=== PATIENT | female | born 1970 | race African-American/Black ===

== ENCOUNTER 2018-04-26 15:05 | Inpatient (IN) | payer MEDICAID ==
[2018-04-26] MEDS ORDERED: Heparin for STEMI(*) 5,000 UNITS/ML 1 ML VIAL IV ONE (15:09)
[2018-04-26] MEDS ORDERED: Ticagrelor* 90 MG TAB PO ONE (15:09)
[2018-04-26] MEDS ORDERED: Nitroglycerin TAB 0.4 MG* 0.4 MG TAB SL ONE (15:16)
[2018-04-26] MEDS ORDERED: nitroGLYCERIN DRIP* 25,000 MCG/250 ML BTL ONE ×2 (15:18→16:04)
[2018-04-26] MEDS ORDERED: VERAPAMIL 2.5 MG/ML 2 ML VIAL ** 5 mg/2 ml ONE (15:18)
[2018-04-26] MEDS ORDERED: Lidocaine 1% INJ* 10 MG/ML 30 ML SDV ONE (15:18)
[2018-04-26] MEDS ORDERED: Heparin 2 UNITS/ML IVPREMIX* 2,000 ML IV ONE (15:18)
[2018-04-26] MEDS ORDERED: Heparin(*) 1000 UNIT/ML 10 ML VIAL CATH LAB IV ONE (15:18)
--- NOTE | 2018-04-26 15:21 | ED ---
HPI Chest Pain - HPI Summary HPI Summary: STEMI called at 1446. Pt is a 48 year old female presenting from [facility] for a STEMI. Pt is s/p left mastectomy. Her chest pain started about 5 minutes before she went to the hospital. She was driving, and she started sweating, felt pressure in her chest, so she pulled over and it would not go away. The chest pain comes and goes, when it comes it is severe. NKDA. The pt had a cardiac catheter in June. The pt reports SOB when the CP comes, as well as some nausea. - History of Current Complaint Hx Obtained From: Patient Onset/Duration: Started Hours Ago, Still Present Timing: Intermittent Initial Severity: Moderate Current Severity: Mild Chest Pain Location: Left Anterior Aggravating Factor(s): Nothing Alleviating Factor(s): Nothing Associated Signs and Symptoms: Positive: Chest Pain, Shortness of Breath, Diaphoresis, Nausea - Allergy/Home Medications Allergies/Adverse Reactions: Allergies Allergy/AdvReac Type Severity Reaction Status Date / Time shellfish derived Allergy Unknown Verified 04/26/18 15:38 Reaction Details PMH/Surg Hx/FS Hx/Imm Hx Previously Healthy: No Cardiovascular History: Reports: Hx Hypertension Respiratory History: Denies: Hx Chronic Obstructive Pulmonary Disease (COPD) Infectious Disease History: Denies: Traveled Outside the [place] in Last 30 Days - Family History Known Family History: Negative: Renal Disease - Social History Lives: With Family Alcohol Use: None Substance Use Type: Reports: None Hx Tobacco Use: No Smoking Status (MU): Never Smoked Tobacco Review of Systems Positive: Skin Diaphoresis Positive: Chest Pain Positive: Shortness Of Breath Positive: Nausea All Other Systems Reviewed And Are Negative: Yes Physical Exam - Summary Physical Exam Summary: General: well-appearing, no pain distress Skin: warm, color reflects adequate perfusion, dry Head: normal Eyes: EOMI, JOANNA ENT: normal Neck: supple, nontender Respiratory: CTA, breath sounds present Cardiovascular: RRR Abdomen: soft, nontender Bowel: present Musculoskeletal: normal, strength/ROM intact Neurological: sensory/motor intact, A&O x3 Psychological: affect/mood appropriate GCS: 15 NIH: 0 Triage Information Reviewed: Yes Vital Signs Reviewed: Yes Diagnostics - Laboratory Result Diagrams: 04/26/18 17:45 Lab Statement: Any lab studies that have been ordered have been reviewed, and results considered in the medical decision making process. - EKG 1509 Cardiac Rate: NL - 81bpm EKG Rhythm: Sinus Rhythm ST Segment: Normal Ectopy: None Chest Pain Course/Dx - Course Course Of Treatment: DR ALFONSO, INTERVENTIONAL CARDIOLOGY, SAW THE PATIENT IN THE ED AND TOOK HER TO THE SNUFF DRIER. CRITICAL CARE TIME LESS THAN 30 MINUTES. - Diagnoses Provider Diagnoses: STEMI (ST elevation myocardial infarction) Discharge - Sign-Out/Discharge Documenting (check all that apply): Patient Departure - admitted - Discharge Plan Condition: Stable Disposition: ADMITTED TO [facility] - Billing Disposition and Condition Condition: STABLE Disposition: Admitted to [facility] - Attestation Statements Document Initiated by Scribe: Yes Documenting Scribe: Courtney Carpenter Provider For Whom Sergeibe is Documenting (Include Credential): Robel Aguiar MD. Scribe Attestation: ICourtney, scribed for Robel Aguiar MD. on 04/26/18 at 1943. Scribe Documentation Reviewed: Yes Provider Attestation: The documentation as recorded by the scribeCourtney accurately reflects the service I personally performed and the decisions made by me, Robel Aguiar MD. Consult Consult: 1447 - Spoke with Jon Aflonso MD, to update him on the STEMI that was called. NIH Scale - NIH Scale Level of Consciousness: Alert/Keenly Responsive Ask Patient the Month and His/Her Age: Both Correct Ask Pt to Open/Close Eyes and Dining Manager/Release Non-Paretic Hand: Both Correctly Best Gaze (Only Horizontal Eye Movement): Normal Visual Field Testing: No Visual Loss Facial Paresis-Pt to Smile & Close Eyes or Grimace Symmetry: Normal/Symmetrical Motor Function - Right Arm: No Drift-Holds 10 Seconds Motor Function - Left Arm: No Drift-Holds 10 Seconds Motor Function - Right Leg: No Drift-Holds 10 Seconds Motor Function - Left Leg: No Drift-Holds 10 Seconds Limb Ataxia-Must be out of Proportion to Weakness Present: Absent Sensory (Use Pinprick to Test Arms/Legs/Trunk/Face): Normal Best Language (Describe Picture, Name Items): No Aphasia Dysarthria (Read Several Words): Normal Extinction and Inattention: No Abnormality Total Score: 0
[2018-04-26] MEDS ORDERED: NS 0.9% 1000 ML* 1,000 ML IV SCH (15:30)
[2018-04-26] MEDS ORDERED: Midazolam* 1 MG/ML 10 ML VIAL (10 MG) ONE (15:37)
[2018-04-26] MEDS ORDERED: fentaNYL* 50 MCG/ML 2 ML VIAL (100 MCG VIAL) ONE (15:37)
[2018-04-26] MEDS ORDERED: KCL 10 MEQ/50 ML IVPREMIX* 10 MEQ/50 ML BAG ONE (15:40)
[2018-04-26] MEDS ORDERED: Iohexol 350 (CONTRAST) 200 ML MDV IV ONE (15:41)
[2018-04-26] MEDS ORDERED: NitroPRUSSide* 25 MG/ML 2 ML VIAL IVPB ONE (16:48)
[2018-04-26] MEDS ORDERED: NS 0.9% 1000 ML* 400 ML IV ONE (17:10)
[2018-04-26] MEDS ORDERED: Nitroglycerin TAB 0.4 MG* 0.4 MG TAB SL PRN (17:10)
[2018-04-26] MEDS ORDERED: Captopril TAB* 12.5 MG PO SCH (18:00)
[2018-04-26] MEDS ORDERED: amLODIPine TAB* 5 MG PO ONE (18:05)
[2018-04-26] MEDS: Atorvastatin* 80 MG TAB PO SCH (18:08)
[2018-04-26] MEDS: Metoprolol Tartrate TAB* 25 MG PO SCH (18:08)
--- NOTE | 2018-04-26 20:56 | CATH ---
CC: Dr. Morgan; Dr. Ott; Krissy Alfonso MD * CARDIAC CATH REPORT: DATE OF ADMISSION: 04/26/18 - ROOM #ICU-09 PRIMARY CARE PHYSICIAN: Dr. Morgan in [place], [place]. BLACK TOP ROLLER: Dr. Ott in [place], [place]. Both part of [facility]. HISTORY: A 48-year-old woman presenting to the ER at [facility] with anterolateral ST-elevation infarct, transferred here for further care. She is a good historian, she underwent catheterization at [facility] last June, per her history because of hypertension. She was told she did not have an infarct. Access was radial, was uncomplicated. She has a longstanding history of hypertension, has per history been controlled on lisinopril and possibly HydroDIURIL. Today at around 11:30 this morning she developed severe chest pain. She presented at [facility] where initial EKG showed hyperacute anterolateral ST changes, repeat EKG showed ST elevation in the anterolateral leads, she was then transferred here. 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 EKG in the ER at 1509 had improved dramatically with resolution of the anterolateral injury current, and with left anterior hemiblock. She underwent emergent catheterization. PAST MEDICAL HISTORY: Hypertension, prior left mastectomy without radiation therapy, obesity. MEDICATIONS: Prehospital medications: 1. Lisinopril unknown mg. 2. Aspirin 81 mg daily. 3. Possibly HydroDIURIL daily. ALLERGIES: None to medication. FAMILY HISTORY: Positive for premature coronary artery disease in her father. SOCIAL HISTORY: She is a nonsmoker, she is . 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 REVIEW OF SYSTEMS: General: No weight loss and no fevers. CHAR FILTER OPERATOR: No history of TIA or CVA. GI: No history of peptic ulcer disease or bleeding. Heme: Positive for prior left mastectomy without subsequent radiation or chemo. Circulatory: No claudication. Endocrine: No history of diabetes. Remainder all negative. PHYSICAL EXAMINATION: Vital Signs: First blood pressure in the ER was 216/ 122. She was pain free. Heart rate in the 80s, sinus rhythm, with occasional PVC. She was not in distress. Her lungs were clear to percussion and auscultation. JVP normal without elevation. Carotids palpable without bruits. No thyromegaly. HEENT: Normal without xanthelasma, scleral injection, or jaundice. EOMs normal. Cranial nerves intact. Cardiac: Normal S1 and S2, audible S4 gallop, no murmur or S3. No rub. [place] not palpable. Abdomen: Soft and nontender. No bruits, aorta not palpable. Liver not palpable. No masses. Femoral pulses 2+. Extremities: Radial pulses 2+, pedal pulses 2+. No cyanosis, clubbing, or edema. Skin: Warm and perfused. Psych: Oriented, appropriate. LABORATORY DATA: Labs from [facility]: BNP normal at 17.4, hemoglobin 14.6, hematocrit 43.6, normal platelet count at 254,000. Normal sodium at 140, potassium low at 2.8, creatinine 0.9, GFR 81. Random blood sugar 121. Troponin 0.002. IMPRESSION: 1. Anterolateral ST elevation infarct with likely partial reperfusion after medical therapy at [facility], she underwent emergent catheterization. 2. Hypertension. Per history, controlled on her outpatient regimen which will be confirmed. 3. Obesity. 4. Prior mastectomy without radiation therapy. [id number]/[facility] #: [id number] [facility]
--- NOTE | 2018-04-26 21:14 | CATH ---
CC: Dr. Ott, [facility]; [facility]; Dr. Alfonso * STENT REPORT: DATE OF PROCEDURE: 04/26/18 PROCEDURE: Right radial artery access, bilateral selective coronary cineangiography, left heart catheterization, left ventriculography, stent placement LAD 2.25 x 38 Synergy drug-eluting stent. HISTORY: A 48-year-old woman presented with anterolateral ST elevation infarct , after medical therapy at [facility], prior to transfer her chest pain became intermittent, EKG here had normalized with resolution of injury current. ACCESS: Right radial artery sheath 6-F Slender. MEDICATIONS: 1. Subcu lidocaine IV versus IV fentanyl. 2. Heparin 5000 units IV given at [facility]. 3. Brilinta 180 mg p.o. given in the ER. 4. IV nitroglycerin started in the ER. 5. Potassium 10 mEq IV over 1 hour. 6. Heparin 3000 units IV. 7. Nitroglycerin 200 mcg, 200 mcg IC. 8. Nipride 2000 mcg IC post revascularization. 9. Radial cocktail of nitroglycerin 300 mcg and 3 mg of verapamil IA. DIAGNOSTIC CATHETER: 5F TIG4 for RCA, 6FLBU 3.5 too short for LCA with superior takeoff. 6FVL 3.5 for left coronary artery. 5F pigtail. [id number]. After diagnostic angiography, she received a total of 400 mcg of IC nitroglycerin without improvement in the LAD stenosis, it was therefore stented with a 2.25 x 38 synergy drug-eluting stent which was then postdilated with a 2.25 x 15 mm balloon distal to proximal to 16 atmospheres for 30 seconds, 16 for 30, 20 for 30, and 22 for 30 at the proximal end. Because of persisting ST elevation a total of 2000 mcg of IC Nipride was given with improvement. LV gram was then performed. HEMODYNAMICS: Initial AO 139/90 LV post revascularization 151/10-20, no aortic valve gradient on pull back. ANGIOGRAPHY: RCA. The RCA is dominant, moderate in size with a superior takeoff, with a moderate medina's crook. The PDA is small to moderate, is followed by 3 small posterolateral branches, the RCA has no stenosis. There are no right to left collaterals. Left main: The left main is normal in size, smooth, has osteal 30% stenosis seen only in the [place] view. LAD: The LAD is moderate, extends past the apex, it supplies a small to moderate bifurcated proximal diagonal, and a number of distal small diagonals. The distal LAD has a long tubular tapering stenosis to 90%, the apical LAD has TIMI2 flow. Lesion is long. After IC nitroglycerin 400 mcg, the LAD stenosis is unchanged. Post stent deployment and postdilatation, there is an IC Nipride. There is TIMI3 flow, a visible miocardial blush, no residual stenosis. No dissection, no loss of side branches. LV gram: The very distal anteroapical, inferoapical and apical segments are hypokinetic to dyskinetic, estimated LVEF 45%. CONCLUSION: 1. Single-vessel disease of distal LAD with anterolateral ST-elevation infarct presentation, excellent angiographic result with drug-eluting stent placement with adjunctive IC Nipride. 2. Mildly impaired LV systolic function. 3. Presenting hypertension improved with IV nitroglycerin, mildly elevated LVDP. [id number]/[facility] #: [id number] NATALIA
[2018-04-26] MEDS: Ticagrelor* 90 MG TAB PO SCH (21:23)
[2018-04-27] MEDS: Metoprolol Tartrate TAB* 25 MG PO SCH ×2 (00:04→05:16)
[2018-04-27 06:31] LABS: EGFR Non-African American 95.2 (>60)
[2018-04-27] MEDS: Aspirin 81 mg CHEW TAB* 81 MG TAB.CHEW PO SCH (08:06)
[2018-04-27] MEDS: Acetaminophen TAB* 325 MG PO PRN ×2 (08:06→14:57)
[2018-04-27] MEDS: Ticagrelor* 90 MG TAB PO SCH ×2 (08:06→21:30)
[2018-04-27] MEDS ORDERED: Isosorbide Mononitrate ER TAB* 30 MG ONE (08:21)
[2018-04-27] MEDS: Isosorbide Mononitrate ER TAB* 30 MG PO SCH (08:22)
[2018-04-27] MEDS ORDERED: Metoprolol Tartrate TAB* 25 MG PO ONE (09:28)
--- NOTE | 2018-04-27 09:32 | ECHO ---
Patient: ELZBIETA DON [facility] Rec#: [id number] : 1970 Date: 04/27/2018 Age: 48y Height: 160 cm / 63.0 in Weight: 101.6 kg / 223.9 lbs Sex: F BSA: 2 Room#: ICU 9 Admit Date#: 04/26/2018 Type: Inpatient Referring: Krissy Alfonso MD Reading: Deng Hennessy MD Under Sheriff: Claribel Fernandez RN RDCS Transthoracic Echocardiogram Indication: STEMI S/P PCI BP: 179/94 HR: 66 Rhythm: NSR Findings History: HTN, left mastectomy Technical Comments: The study quality is good. Left Ventricle: The left ventricular chamber size is normal. Moderate concentric left ventricular hypertrophy is observed. There is a focal wall motion abnormality present. There is normal left ventricular systolic function. The estimated ejection fraction is 50-55%. There is an E to A reversal in the mitral valve flow pattern suggestive of diastolic dysfunction. The apical anterior wall segment is hypokinetic (score 2). Overall wallmotion score index is 2.00 Left Atrium: The left atrial chamber size is normal. Right Ventricle: The right ventricular cavity size is normal. The right ventricular global systolic function is normal. Right Atrium: The right atrial cavity size is normal. Aortic Valve: The aortic valve is trileaflet. The aortic valve leaflets are mildly thickened. There is mild aortic regurgitation. There is no evidence of aortic stenosis. Mitral Valve: The mitral valve leaflets are mildly thickened. There is trace to mild mitral regurgitation. There is no evidence of mitral stenosis. Tricuspid Valve: The tricuspid valve leaflets are normal. There is trace to mild tricuspid regurgitation. No pulmonary hypertension is noted. There is no tricuspid stenosis. Pulmonic Valve: The pulmonic valve appears normal. There is no evidence of pulmonic regurgitation. There is no pulmonic stenosis. Pericardium: There is no significant pericardial effusion. A pericardial fat pad is visualized. Aorta: There is moderate dilatation of the ascending aorta.at 4.1 cm. There is no dilatation of the aortic arch. There is no dilation of the aortic root. Pulmonary Artery: The main pulmonary artery is not well visualized. Venous: The inferior vena cava appears normal in size. There is less than 50% respiratory change in the inferior vena cava dimension. Summary: There was not any prior study for comparison. Conclusions Moderate concentric left ventricular hypertrophy is observed. There is normal left ventricular systolic function. There is a focal wall motion abnormality present. The apical anterior wall segment is hypokinetic (score 2).Akinesis of the apex There is mild aortic regurgitation. There is trace to mild mitral regurgitation. There is trace to mild tricuspid regurgitation. No pulmonary hypertension is noted. There is no significant pericardial effusion. There is moderate dilatation of the ascending aorta.at 4.1 cm. Measurements Name Value Normal Range RVIDd (AP) 2D 2.4 cm (0.9 - 2.6) RVDdMajor (2D) 2.9 cm (2.2 - 4.4) RAd ISD 4CH 4.1 cm (3.4 - 4.9) RA (A4C)W 3.7 cm (2.9 - 4.6) IVSd (2D) 1.6 cm (0.6 - 1) LVPWd (2D) 1.5 cm (0.6 - 1) LVIDd (2D) 4.4 cm (3.6 - 5.4) LVIDs (2D) 2.8 cm - LV FS (2D) 36 % (25 - 45) Aortic Annulus 2 cm (1.4 - 2.6) Ao root diameter (2D) 2.8 cm (2.1 - 3.5) Ascending Ao 4.1 cm (2.1 - 3.4) Aortic arch 2.8 cm (1.8 - 3.4) LA dimension (AP) 2D 3.4 cm (2.3 - 3.8) LAd ISD 4CH 5 cm (2.9 - 5.3) LA ISD 4CH W 3.8 cm (2.5 - 4.5) Name Value Normal Range LA ESV BP (A/L) index 19 ml/m2 - Name Value Normal Range MV E-wave Vmax 0.91 m/sec - MV deceleration time 275 msec - MV A-wave Vmax 1.1 m/sec - MV E:A ratio 0.8 ratio - LV septal e' Vmax 0.05 m/sec - LV lateral e' Vmax 0.07 m/sec - LV E:e' septal ratio 18.2 ratio - LV E:e' lateral ratio 13 ratio - Name Value Normal Range AV Vmax 1.9 m/sec - AV VTI 40.1 cm - AV peak gradient 14 mmHg - AV mean gradient 9 mmHg - LVOT Vmax 1.1 m/sec - LVOT VTI 20.5 cm - LVOT peak gradient 5 mmHg - LVOT mean gradient 3 mmHg - AR PHT 520 msec - JAMIR Vmax 0.57 m/sec - Name Value Normal Range TR Vmax 2.4 m/sec - TR peak gradient 23 mmHg - RAP 8 mmHg - RVSP 31 mmHg - IVC diameter 2 cm - Name Value Normal Range PV Vmax 1 m/sec - Wallmotion BAS Not Seen BA Not Seen BAL Not Seen HAYLEY Not Seen BI Not Seen BIS Not Seen MAS Not Seen MA Not Seen MAL Not Seen MIL Not Seen WY Not Seen MIS Not Seen Not Seen AA Hypokinetic AL Not Seen AI Not Seen APEX Akinetic
[2018-04-27] MEDS ORDERED: Lisinopril TAB* 10 MG PO SCH (10:00)
[2018-04-27] MEDS: Hydrochlorothiazide TAB* 25 MG PO SCH (10:23)
[2018-04-27] MEDS: Metoprolol Tartrate TAB* 50 mg PO SCH ×2 (14:15→21:31)
[2018-04-27] MEDS: Atorvastatin* 80 MG TAB PO SCH (17:35)
[2018-04-28] MEDS: oxyCODONE/Acetamin 5/325 MG* TAB PO PRN ×2 (03:21→07:57)
[2018-04-28] MEDS: Metoprolol Tartrate TAB* 50 mg PO SCH ×2 (06:16→14:55)
[2018-04-28 06:34] LABS: Hematocrit 40 % (35-47); Hemoglobin 13.2 g/dl (12.0-16.0); Mean Corpuscular HGB Conc 33 g/dl (31-36); Mean Corpuscular Hemoglobin 28 pg (27-31); Mean Corpuscular Volume 84 fL (80-97); Mean Platelet Volume 9.5 um3 (7.4-10.4); Platelet Count 192 10^3/ul (150-450); Red Blood Count 4.75 10^6/ul (4.00-5.40); Red Cell Distribution Width 14 % (10.5-15); White Blood Count 9.9 10^3/ul (3.5-10.8)
[2018-04-28 06:49] LABS: EGFR Non-African American 82.1 (>60)
[2018-04-28] MEDS: Isosorbide Mononitrate ER TAB* 30 MG PO SCH (08:55)
[2018-04-28] MEDS: Hydrochlorothiazide TAB* 25 MG PO SCH (08:55)
[2018-04-28] MEDS: Aspirin 81 mg CHEW TAB* 81 MG TAB.CHEW PO SCH (08:55)
[2018-04-28] MEDS: Ticagrelor* 90 MG TAB PO SCH ×2 (08:55→21:17)
[2018-04-28] MEDS: Lisinopril TAB* 10 MG PO SCH ×2 (08:55→21:17)
[2018-04-28] MEDS ORDERED: Lisinopril TAB* 10 MG PO SCH (09:00)
[2018-04-28] MEDS: Ondansetron INJ* 2 MG/ML VIAL IV PRN ×2 (09:30→18:14)
[2018-04-28] MEDS ORDERED: Docusate CAP* 100 MG PO PRN (12:28)
[2018-04-28] MEDS ORDERED: PROCHLORPERAZINE INJ 5 MG/ML 2 ML VIAL IV PRN (14:07)
[2018-04-28] MEDS ORDERED: Hydrochlorothiazide TAB* 25 MG PO ONE (14:36)
[2018-04-28] MEDS: Acetaminophen TAB* 325 MG PO PRN (18:14)
[2018-04-28] MEDS: Atorvastatin* 80 MG TAB PO SCH (18:14)
[2018-04-28] MEDS: Carvedilol TAB* 25 MG PO SCH (21:18)
[2018-04-28] MEDS ORDERED: Carvedilol TAB* 25 MG PO SCH (22:00)
[2018-04-29 06:44] LABS: EGFR Non-African American 76.2 (>60)
[2018-04-29] MEDS ORDERED: Potassium Chlor TAB* 20 MEQ TAB.ER PO ONE (07:34)
[2018-04-29] MEDS: Lisinopril TAB* 10 MG PO SCH ×2 (08:16→20:10)
[2018-04-29] MEDS: Ticagrelor* 90 MG TAB PO SCH ×2 (08:17→20:18)
[2018-04-29] MEDS: Aspirin 81 mg CHEW TAB* 81 MG TAB.CHEW PO SCH (08:17)
[2018-04-29] MEDS: Carvedilol TAB* 25 MG PO SCH ×2 (08:39→20:18)
[2018-04-29] MEDS ORDERED: Hydrochlorothiazide TAB* 25 MG PO SCH (09:00)
[2018-04-29] MEDS ORDERED: amLODIPine TAB* 5 MG PO SCH (09:00)
[2018-04-29] MEDS: hydrALAZINE TAB* 10 MG PO SCH ×2 (12:16→21:35)
[2018-04-29] MEDS: Atorvastatin* 80 MG TAB PO SCH (16:59)
[2018-04-30 06:16] LABS: EGFR Non-African American 79.7 (>60)
[2018-04-30] MEDS ORDERED: Potassium Chlor TAB* 20 MEQ TAB.ER PO SCH (09:00)
[2018-04-30] MEDS ORDERED: Hydrochlorothiazide TAB* 25 MG PO SCH (09:00)
[2018-04-30] MEDS ORDERED: Lisinopril TAB* 10 MG PO SCH (09:00)
[2018-04-30] MEDS: Ticagrelor* 90 MG TAB PO SCH (09:08)
[2018-04-30] MEDS: Aspirin 81 mg CHEW TAB* 81 MG TAB.CHEW PO SCH (09:08)
[2018-04-30 10:43] VITALS: BP 137/88
[2018-04-30] MEDS ORDERED: Hydrochlorothiazide TAB* 25 MG PO ONE (11:18)
[2018-04-30] MEDS: Carvedilol TAB* 25 MG PO SCH (11:20)
--- NOTE | 2018-04-30 13:40 | DS ---
CC: Dr. Krissy Alfonso; Dr. Fredrick Morgan in [place], [place], fax# , phone# [phone]; * Dr. Fredrick Ott, part of the [facility], [place], fax# , telephone# [phone].* DISCHARGE SUMMARY: DATE OF ADMISSION: 04/26/18 DATE OF DISCHARGE: 04/30/18 FINAL DIAGNOSIS: Acute ST-segment elevation anterior wall myocardial infarction. SECONDARY DIAGNOSES: 1. Stenotic coronary artery disease. 2. Essential hypertension. 3. Obesity. HISTORY OF PRESENT ILLNESS: The patient is a pleasant 48-year-old female who was transferred from [facility] to [facility] for an acute ST-segment elevation myocardial infarction. Please refer to the history and physical by Dr. Krissy Alfonso for complete details of presenting symptoms. Of note, the patient had chest discomfort that waxed and waned, and by the time she got to our emergency room she still had some present, but the EKG showed improvement. She went to the cardiovascular laboratory and was found to have a critical long mid LAD lesion that underwent successful drug-eluting stenting with placement of a 2.25 x 38 mm long Synergy drug-eluting stent post dilated to high pressures to obtain a 2.4 to 2.5 mm diameter. During the course of the hospitalization, her cardiac enzymes peaked at 800 total CPK, 115.9 MB, and a 17.37 troponin. During the course of the hospitalization, her EKG evolved developing residual ST-segment elevation, mild in nature, in leads V2, V3, and V4 with biphasic T-waves in those leads and inverted T-waves in V5 and subtly in V6 and in lead I and aVL. Also, during the course of her hospitalization, the biggest issue became blood pressure management. Initially, the blood pressure was recorded on her leg due to her left mastectomy and the radial artery site having been used. Eventually , blood pressure recording was switched to the right arm and we were able to get her under control on increasing doses of carvedilol in addition to increasing her hydrochlorothiazide and p.r.n. other medications. It should be noted she was intolerant of Imdur and amlodipine, both producing a severe headache with nauseousness, which took a while to relieve. On the day of discharge, she was up and about without any chest, throat, or arm discomfort. Vital signs revealed a blood pressure of 137/88 with a pulse of 78 , respirations were 14, O2 saturation 95% on room air. Neck was supple, no increased JVP. Carotids had good upstroke and volume. Conjunctivae are pink. Sclerae clear. Mouth revealed moist mucosa. Lungs revealed no accessory muscle usage. There was good excursion. There was no active rales, rhonchi, or wheezes. Heart revealed no visible heaves, no palpable heaves or thrills. Normal S1, S2 with a very short systolic murmur of 1/6 at the left lower sternal border without radiation. Abdomen was mildly obese, soft, nontender. Extremities without edema. The right radial artery site was well healed with good antegrade flow. Neuro: The patient alert and oriented with normal mentation. Musculoskeletal: The patient with normal gait. Psychiatric: The patient with normal affect. DIAGNOSTIC STUDIES/LAB DATA: The last blood results from today showed a sodium of 136, potassium of 3.6, chloride 102, bicarb 26, BUN and creatinine of 12 and 0.7. Other studies done during the hospitalization included a transthoracic echocardiogram on 04/27/18 showing moderate left ventricular hypertrophy with focal wall motion abnormality noted, an EF of 50% to 55%. The apical anterior segment was hypokinetic. There was mild aortic regurgitation. There was trace- to-mild mitral regurgitation. There was [id number] tricuspid regurgitation without pulmonary hypertension. There was moderate dilatation of the ascending aorta at 4.1 cm. MEDICATIONS ON THE DAY OF DISCHARGE: Include: 1. Aspirin 81 mg a day. 2. Lisinopril 20 mg a day. 3. Atorvastatin 80 mg a day. 4. Carvedilol 25 mg twice a day. 5. Hydrochlorothiazide 25 mg daily. 6. Potassium 20 mEq daily. 7. Ticagrelor 90 mg twice a day. The patient was given her first bottle for a 1 month supply of ticagrelor given by the hospital. 8. Sublingual NTG to use as directed. The patient has a followup appointment with Dr. Fredrick Ott, her research physicist, on Friday and she was instructed to bring all of her medications and discharge sheets with her to that appointment. If her blood pressure continues to be a problem, the lisinopril could be doubled. She has a followup appointment with Dr. Fredrick Morgan, her family doctor, on the of this month. The patient was given a CD with the cardiac catheterization and echocardiogram imaging on it as well as with the reports to bring to Dr. Ott and I had already sent him the images for both over the internet. All of the patient's questions were answered to her satisfaction. She was given a cardiac education booklet as well as her stent card. [id number]/[facility] #: [id number] NATALIA
[2018-05-01] MEDS ORDERED: Hydrochlorothiazide TAB* 25 MG PO SCH (09:00)
== END 2018-04-30 12:41 | disposition home or self-care (01) | DRG 174 ==
LOC: ED 15:05 → CHICATH 15:22 → ICU 17:22
PROVIDERS: ADMIT Internal Medicine Cardiovascular Disease; ATTEND Internal Medicine Cardiovascular Disease
PROC: B2151ZZ Fluoroscopy of Left Heart using Low Osmolar Contrast (ICD-10-PCS; 2018-04-26)
PROC: B2111ZZ Fluoroscopy of Multiple Coronary Arteries using Low Osmolar Contrast (ICD-10-PCS; 2018-04-26)
PROC: 027034Z Dilation of Coronary Artery, One Artery with Drug-eluting Intraluminal Device, Percutaneous Approach (ICD-10-PCS; 2018-04-26)
PROC: 4A023N7 Measurement of Cardiac Sampling and Pressure, Left Heart, Percutaneous Approach (ICD-10-PCS; principal; 2018-04-26 15:00)
DX: I21.09 ST elevation (STEMI) myocardial infarction involving other coronary artery of anterior wall (principal); I10 Essential (primary) hypertension; R29.700 NIHSS score 0; R40.2412 Glasgow coma scale score 13-15, at arrival to emergency department; I25.10 Atherosclerotic heart disease of native coronary artery without angina pectoris; E66.9 Obesity, unspecified; Z90.12 Acquired absence of left breast and nipple; Z91.013 Allergy to seafood; Z79.82 Long term (current) use of aspirin; Z82.49 Family history of ischemic heart disease and other diseases of the circulatory system; Z68.39 Body mass index [BMI] 39.0-39.9, adult; R11.0 Nausea; R51 Headache; T46.3X5A Adverse effect of coronary vasodilators, initial encounter; Y92.9 Unspecified place or not applicable; I08.3 Combined rheumatic disorders of mitral, aortic and tricuspid valves; I77.819 Aortic ectasia, unspecified site; Z79.01 Long term (current) use of anticoagulants
CPT/HCPCS: 36415; 80048; 80061; 82550; 82553; 83880; 84132; 84484; 85027; 85347; 87641; 93005; 93306; 99285; A9270-GY; C1725; C1769; C1876; C1887; C9606-LD; J0780; J1644; J2250; J2405; J3010; J3480